=== PATIENT | female | born 1995 | race African-American/Black ===

== ENCOUNTER 2016-11-06 15:30 | Emergency (ER) | payer SELFPAY ==
[2016-11-06 15:38] VITALS: BP 148/73; PULSE 98; TEMP 98.5; BMI 33.6
--- NOTE | 2016-11-06 15:45 | PDOC ---
History of Present Illness - General Chief Complaint: Sore Throat Stated Complaint: THROAT PAIN Time Seen by Provider: 11/06/16 15:43 History Source: Patient Exam Limitations: No Limitations - History of Present Illness Initial Comments: CHIEF COMPLAINT: 21 y/o afebrile female with no significant PMH c/o dry cough and scratchy throat x 3 days. HISTORY OF PRESENT ILLNESS: The patient denies f/c, n/v/d, CP, SOB, runny nose , nasal congestion, abd pain, back pain, rashes. The patient has not taken anything for her symptoms. She is a smoker. Vital signs on arrival are within normal limits. REVIEW OF SYSTEMS: GENERAL/CONSTITUTIONAL: No fever/chills. No weakness. No weight change. HEAD, EYES, EARS, NOSE AND THROAT: No change in vision. No ear pain or discharge. +sore throat. CARDIOVASCULAR: No chest pain or shortness of breath. RESPIRATORY: +dry cough. No wheezing or hemoptysis. GASTROINTESTINAL: No abd pain, nausea, vomiting, diarrhea. GENITOURINARY: No dysuria, frequency, or change in urination. MUSCULOSKELETAL: No joint or muscle swelling or pain. No neck or back pain. SKIN: No rash or easy bruising. NEUROLOGIC: No headache, vertigo, loss of consciousness, or loss of sensation. PHYSICAL EXAM: GENERAL: The patient is awake, alert, and fully oriented, in no acute distress. She is well appearing, ambulatory, in NAD or obvious discomfort. No cough appreciated in the ER. HEAD: Normal with no signs of trauma. No pain with palpation of sinuses. ENT: Pupils equal, round and reactive to light, extraocular movements intact, sclera anicteric, conjunctiva clear. Enlarged tonsils (patient admits this is normal) without exudate. Uvula midline. No soft/hard palate deformities. LUNGS: Clear to auscultation bilaterally. Normal excursion. No respiratory distress or use of accessory muscles. CV: RRR, S1/S2, no MRG. Cap refill < 2 sec. ABDOMEN: Soft, non-distended, non-tender even to deep palpation, no hepatomegaly or splenomegaly, no masses. EXTREMITIES: Normal range of motion, no edema. NEUROLOGICAL: Normal speech, normal gait. CN II-XII grossly intact. PSYCH: Normal mood, normal affect. SKIN: Warm, dry, normal turgor, no rashes or lesions noted. Past History - Past Medical History Allergies/Adverse Reactions: Allergies Allergy/AdvReac Type Severity Reaction Status Date / Time ciprofloxacin [From Cipro] Allergy Severe Difficulty Verified 11/06/16 15:35 Breathing ciprofloxacin HCl Allergy Severe Difficulty Verified 11/06/16 15:35 [From Cipro] Breathing sulfamethoxazole Allergy Severe Difficulty Verified 11/06/16 15:35 [From Bactrim] Breathing trimethoprim [From Bactrim] Allergy Severe Difficulty Verified 11/06/16 15:35 Breathing aspirin Allergy Intermediate Swelling Verified 11/06/16 15:35 Iodine and Iodide Containing Allergy Intermediate Swelling Verified 11/06/16 15: 35 Produc Penicillins Allergy Intermediate Swelling Verified 11/06/16 15:35 Home Medications: Ambulatory Orders NK [No Known Home Medication] 11/06/16 - Immunization History Immunization Up to Date: Yes - Psycho/Social/Smoking Cessation Hx Suicidal Ideation: No Smoking History: Current every day smoker Number of Cigarettes Smoked Daily: 2 Information on smoking cessation initiated: No Hx Alcohol Use: No Drug/Substance Use Hx: No *Physical Exam - Vital Signs Last Vital Signs Temp Pulse Resp BP Pulse Ox 98.5 F 98 H 20 148/73 100 11/06/16 15:36 11/06/16 15:36 11/06/16 15:36 11/06/16 15:36 11/06/16 15:36 Medical Decision Making - Medical Decision Making A/P: 21 y/o afebrile female with sore throat and dry cough x 3 days. Suspect seasonal allergies. Plan is as follows: 1. Rapid strep 2. PO claritin The patient did not want to wait for results as the computer system went down. She is going to leave without paper work or results. Suggested she take Claritin if needed for symptoms, gargle with warm salt water and return to the ER with any worsening or concerning symptoms. Rapid strep - negative *DC/Admit/Observation/Transfer Diagnosis at time of Disposition: Seasonal allergies Qualifiers: Chronicity: acute Allergic rhinitis trigger: unspecified Qualified Code(s): J30.2 - Other seasonal allergic rhinitis - Discharge Dispostion Disposition: HOME Condition at time of disposition: Improved - Patient Instructions Printed Discharge Instructions: DI for Cough -- Adult, Sore Throat Additional Instructions: Discharge INstructions: -Take Claritin for symptoms if needed -Gargle with warm salt water multiple times per day -Return to the ER with any worsening or concerning symptoms
[2016-11-06] MEDS ORDERED: LORATADINE 10 MG TABLET PO ONE (16:27)
[2016-11-06] MEDS ORDERED: LORATADINE 10 MG TABLET ONE (16:33)
== END 2016-11-06 18:46 | disposition home or self-care (01) ==
LOC: JERFT 15:30
DX: J30.2 Other seasonal allergic rhinitis (principal); F17.210 Nicotine dependence, cigarettes, uncomplicated
CPT/HCPCS: 87070; 87430; 99281-25